=== PATIENT | male | born 1995 | race Two or more races ===

== ENCOUNTER 2018-05-26 02:01 | Emergency (ER) | payer OTHER ==
[2018-05-26 02:06] VITALS: BP 134/74
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
== END 2018-05-26 02:44 | disposition home or self-care (01) ==
DX: H11.31 Conjunctival hemorrhage, right eye (principal); Y04.0XXA Assault by unarmed brawl or fight, initial encounter